=== PATIENT | male | born 2000 | race Caucasian/White ===

== ENCOUNTER 2023-12-30 01:55 | Observation (INO) | payer BC, SELFPAY ==
[2023-12-29 20:59] VITALS: BP 133/69
[2023-12-29 21:48] VITALS: BMI 25.1
[2023-12-29 22:13] LABS: % Basophils 0.4 % (0-2); % Immature Granulocytes 0.2 % (0-0.5); % Lymphocytes 12.3 % (20.5-51.1); % Neutrophils 74.1 % (42.2-75.2); Absolute Lymphocytes 1.2 10^3/uL (1.2-3.4); Absolute Monocytes 1.3 10^3/uL (0.1-0.6); Absolute Neutrophils 7.2 10^3/uL (1.4-6.5); Hemoglobin 14.4 g/dL (13.0-18.0); Mean Corp Hgb Conc. 35.1 g/dL (33.0-37.0); Mean Corpuscular Hgb 29.3 pg (27.0-31.0); Mean Corpuscular Volume 83.3 fL (80.0-94.0); Mean Platelet Volume 10.5 fL (7.4-10.4); Nucleated Red Blood Cells % 0 % (-); Platelet Count 186 10^3/uL (130-400); Red Blood Cell Count 4.92 10^6/uL (4.70-6.10); Red Cell Dist. Width 12.8 % (11.5-14.5); White Blood Cell Count 9.8 10^3/uL (4.8-10.8)
[2023-12-29 22:19] LABS: Erythrocyte Sed Rate 13 mm/hour (0-20)
[2023-12-29 22:25] LABS: Lactic Acid 0.9 mmol/L (0.7-2.0)
[2023-12-29 22:27] LABS: ALT (SGPT) 33 U/L (0-50); AST (SGOT) 53 U/L (17-59); Albumin 4.8 g/dl (3.5-5.0); Alkaline Phosphatase 82 U/L (38-126); Blood Urea Nitrogen 17 mg/dl (9-20); Calcium 10.9 mg/dl (8.4-10.2); Carbon Dioxide 24 mmol/L (22-30); Chloride 100 mmol/L (98-107); Estimated Creatinine Clearance 119 ml/min; Glucose 111 mg/dl (70-99); Potassium 4.3 mmol/L (3.5-5.1); Sodium 132 mmol/L (135-145); Total Bilirubin 1.7 mg/dl (0.2-1.3); Total Protein 7.6 g/dl (6.3-8.2); eGFR > 60.00
[2023-12-29 22:49] VITALS: BP 119/62
--- NOTE | 2023-12-29 23:37 | ED.GENMED ---
History of Present Illness
General
Chief Complaint: Skin Problem
Source: patient and family (Mother)
Exam Limitations: none
Time Seen by Provider: 12/29/23 22:05
Nursing documentation reviewed up to this point in time: agreed with
Travel History
Have you had any contact with someone who has COVID-19?: No
Do you have any symptoms of coronavirus? Fever > 100 degrees, chills, cough, shortness of breath, sore throat, loss of taste or smell, muscle aches, or headache?: No
History of Present Illness
History of Present Illness:
23-year-old male with no significant chronic medical issues who presents to the emergency room for evaluation of left elbow pain and redness, swelling. Patient reports that he had a minor fall on concrete a week ago and sustained a minor abrasion
to the left elbow. He says it had been healing well and he had no issues with it throughout the week. He says that 2 days ago at the gym he was in the hot tub and submerged the elbow and then took an ice bath and again submerged the elbow.
Yesterday he started to notice some redness and pain in the elbow and today had increasing swelling and pain and so he came to the emergency room reassessed. He says he has had some chills today. He denies any other complaints.
Past History
Past History
ED Past Medical History: None
ED Past Surgical History: None
Social History
Tobacco: Non-smoker
Alcohol: Occasional
Drug: None
Personal: Single
Living: with family
Employment: Student (Just graduated)
Family History
Family History: Other ( from tachycardia)
Review of Systems
Review of Systems
All Other Systems: ROS reviewed and negative except as documented in HPI and ROS
Constitutional: Reports fever and chills
EENT: Denies sore throat or runny nose
Respiratory: Denies cough or trouble breathing
Cardiac: Denies chest pain
ABD/GI: Denies abdominal pain, nausea or vomiting
: Denies flank pain
Musculoskeletal: Reports joint pain (Left elbow pain); Denies neck pain or back pain
Skin: Reports other (Redness and swelling left elbow)
Neurological: Denies headache
Phy Exam
Physical Exam
Physical Exam:
General: Awake, alert, oriented x3; no acute distress
Head: Normocephalic, atraumatic
Eyes: Conjunctiva normal, sclera anicteric
Throat: Airway intact, handling secretions
Neck: Trachea midline, supple without meningismus
Lungs: Clear to auscultation bilaterally, no wheezing, rales, rhonchi
Heart: Regular rate and rhythm, no murmurs, gallops, or rubs
Abd: Soft, non distended, nontender
Neuro: Cranial nerves grossly intact, speech fluid
Skin: Patient has erythema over the left olecranon surrounding a small scabbed over abrasion and localized swelling in this area�erythema is not circumferential and is quite localized over the olecranon
Extremities: Patient has erythema and localized swelling and redness over the olecranon as above; he has full active range of motion in the left elbow with no discomfort whatsoever and he has no joint effusion
Scores
Heart Failure Risk
Heart Failure Risk Score: Not Applicable
Heart Score for Chest Pain Patients
STEMI patient?: Not applicable
Withdrawal Assessment of Alcohol
Withdrawal Assessment Completed?: Not applicable
Course
Orders/Labs/Results
Orders:
Orders
12/29/23 21:05
CR Elbow - Left Min 3 Views Urgent
Comment:
Reason For Exam: swelling, redness, fever
12/29/23 22:01
CRP [C-Reactive Protein] Urgent
Complete Blood Count/With Diff Urgent
Comprehensive Metabolic Panel Urgent
Lactic Acid Q4H
Comment: ON ICE, CANCEL 2ND ORDER IF FIRST LACTIC ACID LEVEL <2
Sed Rate [Erythrocyte Sed Rate] Urgent
Blood Culture Q30M
MARITZA Source: Blood/Venous
Specimen Description:
Comment: FROM 2 SEPARATE SITES
12/29/23 22:45
Blood Culture Q30M
MARITZA Source: Blood/Venous
Specimen Description:
Comment: FROM 2 SEPARATE SITES
12/29/23 23:00
Flush (0.9% Sodium Chloride) [Flush (Nss)] See Dose Instructions IV PER PROTOCOL
12/29/23 23:03
Non Vasc Upper Ext Left US [US Non Vasc UPPER Ext LT] Urgent
Comment:
Reason For Exam: left elbow swelling
12/29/23 23:36
CeFAZolin 2 GRAM [Ancef] 2 grams in 10 ml IV NOW
Ketorolac [Toradol] 15 mg IV NOW STA
12/29/23 23:56
CeFAZolin 2 GRAM [Ancef] 2 grams in 10 ml IV NOW
12/30/23 00:28
LevoFLOXacin 750 MG/150 ML [Levaquin] 750 mg in 150 ml IV NOW
Abnormal Lab Results
12/29/23
22:01
MPV 10.5 H fL
(7.4-10.4)
Absolute Neuts (auto) 7.2 H 10^3/uL
(1.4-6.5)
Absolute Monos (auto) 1.3 H 10^3/uL
(0.1-0.6)
Lymphocytes % 12.3 L %
(20.5-51.1)
Monocytes % 13.0 H %
(1.7-9.3)
Sodium 132 L mmol/L
(135-145)
Glucose 111 H mg/dl
(70-99)
Calcium 10.9 H mg/dl
(8.4-10.2)
Total Bilirubin 1.7 H mg/dl
(0.2-1.3)
C-Reactive Protein 154.00 H mg/L
(0.0-10.00)
12/29/23 22:01
12/29/23 22:01
Vital Signs
Initial and Last Documented VS:
Initial Vital Signs
Temp Pulse Resp BP Pulse Ox
38.2 C H 91 16 133/69 99
12/29/23 20:59 12/29/23 20:59 12/29/23 20:59 12/29/23 20:59 12/29/23 20:59
Last Documented Vital Signs
Temp Pulse Resp BP Pulse Ox
37.4 C 73 18 119/62 97
12/29/23 22:49 12/29/23 22:49 12/29/23 22:49 12/29/23 22:49 12/29/23 22:49
MDM/Problems Addressed
Differential Diagnosis Includes:
Elbow fracture, septic bursitis, cellulitis, abscess, septic arthritis
MDM/Problems Addressed:
23-year-old male presents for evaluation of redness and swelling of the left elbow as described above. He arrives febrile but otherwise normal vitals. Exam as above. Suspect that this is likely either a localized cellulitis or perhaps a septic
bursitis�clinical suspicion for septic arthritis is extremely low as he has full range of motion in the left elbow with no discomfort and his localized swelling and redness is over the skin of the olecranon and does not extend around the joint
itself. He was sent for an x-ray in triage reviewed by me shows no fracture or other acute pathology. He had labs sent in triage which are pending including a CBC and a CMP, ESR and CRP as well as lactate and blood cultures given his fever. Will
send for an ultrasound of the area to evaluate for any signs of abscess. Will hold off on arthrocentesis at this point with no signs of joint effusion, no pain with range of motion of the elbow and very low clinical suspicion that this is a septic
arthritis.
Ultrasound of the area shows edema of the skin but no discernible fluid collection. Will plan to treat with antibiotics�will cover with Ancef and levofloxacin given water exposure prior to signs of infection. Given that he is having systemic
symptoms I think he warrants admission for intravenous antibiotics to start. Discussed with hospitalist for admission.
*Radiology
Radiology exam reviewed: preliminary read by ED provider
*Pulse Oximetry
Patient hypoxic: no
*Critical Care Note
Total Time (30-74mins, 75-104mins- exclusive of procedures): Not Applicable
Data Reviewed
Source: patient and family (Mother)
Further Testing Considered But Not Given:
Considered arthrocentesis as above
Patient Management
Discussion with other providers: Hospitalist (Discussed with hospitalist)
Escalation/DeEscalation of care consider admission/obs:
Admission indicated
ED Attending Note
-
Portions of this chart may have been created with voice recognition software.� Occasional wrong word or��sound alike� substitutions may have occurred due to the inherent limitations of voice recognition software.
Discharge Plan
Departure
Patient Disposition: Admit
Date of Disposition: 12/30/23
Time of Disposition: 00:34
Admit to doctor: Philomena
Presentation/result/management discussed w/ accepting MD/DO: Hospitalist
Discharge Problem:
Acute cellulitis
Prescriptions:
No Action
epinephrine [EpiPen] 0.3 MG/0.3/SYRINGE auto-injector
0.3 mg IM PRN PRN (Reason: allergic reaction)
Referrals:
NONE,* [Family Provider] -
Interventions
Interventions:
*Risk Screen - Suicide Last Done: 12/29/23 20:59
*General Assessment Last Done: 12/29/23 20:59
*Neglect/Abuse Screening Last Done: 12/29/23 20:59
ED- Fall Risk Assessment Last Done: 12/29/23 22:07
*ED COVID-19 Vaccine History Last Done: 12/29/23 21:48
ED-Skin Assessment Last Done: 12/29/23 23:45
Discharge Date and Time
Print Language: YI
[2023-12-30] MEDS: TORADOL 15 MG IV (00:17)
[2023-12-30] MEDS: ANCEF 10 IV ×2 (00:17→16:52)
[2023-12-30] MEDS: FLUSH (NSS) 1 FLUSH IV (00:18)
[2023-12-30] MEDS: LEVAQUIN 150 IV (00:46)
--- NOTE | 2023-12-30 01:52 | HPS.HSE ---
Family Physician
-
Family Physician: * NONE
Chief Complaint
-
Concern for Left Elbow Infection - pain/swelling/erythema
History of Present Illness
23yo M with No PMH on no medications presents to ER with complaint of left elbow erythema/swelling/pain starting Saturday Morning. He states about 8-9 days ago he sustained a minor fall landing on concrete with subsequent abrasion to left elbow. He
was fine up until her ran a marathon yesterday. To decompress he used a cold plunge bath followed by hot tub exposure last night. This morning he awoke with swelling/pain/erythema. Did not have a fever until present in ER with associated chills and
diaphoresis. Denies recurrence in past or hx septic joint. Denies dizziness/LH, CP, palps, wheezing, cough, sob, abd pain, n/v/d/c, dysuria, calf or leg pain.
ER course: Pt presents with Tmax 100.7, HR 91 other V.S.S. Na 132. BUN/Cr 17/1.1, WBC 9.8K, LA 0.9, Tbili 1.7, CRP 152, ESR 13. US with subcu edema, no collection. XR no obvious fx/dislocation/gas (official read pending). S/P Ancef and Levaquin in
ER.
Medical History
Past Medical History
Past Medical History: Reports None
Past Surgical History: Reports Other (Left Hand Fracture s/p Repair, R wrist Fx s/p repair )
Social History
Tobacco: Non-smoker
Alcohol: Occasional (social)
Drug: None
Family History
Family History: Other
Allergies / Home Medications
Allergies reflects when Allergies were last updated in [employer].
Home Medications with original date entered in [employer]
Allergy/Medication List:
Allergies
Allergy/AdvReac Type Severity Reaction Status Date / Time
pistachio nut Allergy Unknown Verified 02/12/22 23:43
CASHEW Allergy Rash Uncoded 02/12/22 23:43
TREE NUTS, AVOCADOS Allergy Unknown Uncoded 02/12/22 23:43
Home Medications
epinephrine 0.3 mg/0.3 mL injection, auto-injector (EpiPen) 0.3 mg IM PRN PRN allergic reaction 02/29/16
Review of Systems
-
A 12 point ROS was completed and negative except as noted: Yes
Physical Exam
Vital Signs
Vital Signs
Temp Pulse Resp BP Pulse Ox
99.3 F 73 18 119/62 97
12/29/23 22:49 12/29/23 22:49 12/29/23 22:49 12/29/23 22:49 12/29/23 22:49
Physical Exam
General: Well Developed, Well Nourished and No Apparent Distress
HEENT: NormoCephalic, Moist mucous membranes and Atraumatic
Respiratory: Clear
Cardiac: S1/S2 and Regular Rhythm; No Murmur or Rub
GI: Soft, Non Tender, Non Distended and Normal Bowel Sounds; No Organomegaly
Rectal: Deferred by Provider
Musculoskeletal: No Clubbing, No Cyanosis and No Edema
Skin: Warm, Dry, Rash and Other (Left elbow with small 1.5x1.5 cm scab. No drainage. Surrounding erythema with minimal TTP. )
Neuro: Awake, Alert, Oriented, AO x 3 and Nonfocal/grossly intact
Hematologic/Lymphatic: No Lymphadenopathy
Psych: Calm
Laboratory Results
-
12/29/23 22:01
12/29/23 22:01
Laboratory Results
Lactic Acid 0.9 mmol/L (0.7-2.0) 12/29/23 22:01
Total Bilirubin 1.7 mg/dl (0.2-1.3) H 12/29/23 22:
AST 53 U/L (17-59) 12/29/23 22:
ALT 33 U/L (0-50) 12/29/23 22:01
Alkaline Phosphatase 82 U/L (38-126) 12/29/23 22:01
Data Reviewed
-
Diagnostic Radiology: Image Personally Visualized and interpreted
Ultrasound: Image Personally Visualized and interpreted
Lab Data: Labs Reviewed by me
Old Records: Reviewed
Impression/Plan
-
Sepsis 2/2 Left Elbow Cellulitis
- Borderline sepsis on admission. +2/4 SIRS (HR 91, T 100.7). No leukocytosis. LA 0.9. CRP 154, ESR 13
- XR without obvious fx/dislocation/gas, follow official read
- US +subcu edema, (-) collection
- Given recent marathon use with wound developing after hot tub exposure will check CPK and Continue Ancef/Levaquin started in ER.
- Low threshold to change Ancef to Vancomycin for MRSA coverage if any worsening signs of sepsis.
- Does not appear to be any drainable correction or concern for septic joint at this time. Defer orthopedics evaluation.
- Consult ID for recommendations.
Hyponatremia
- Na 132. Suspect dehydration in setting of sepsis and recent marathon
- Continue NS and trend for improvement.
Hyperbilirubinemia - Tbili 1.7. Suspect cholestasis in setting of dehydration vs gilberts. LFTS otherwise unremarkable. RUQ exam benign. Continue IVF and trend.
Diet: regular
DVT Ppx: Lovenox
Code Status: Full
[2023-12-30 02:28] VITALS: BMI 24.3
[2023-12-30 02:33] VITALS: BP 125/68; BMI 24.3
[2023-12-30] MEDS: NSS 1000 IV ×2 (02:52→10:28)
[2023-12-30 03:47] LABS: Creatine Phosphokinase 517 U/L (55-170)
[2023-12-30] MEDS: ANCEF 5 IV (07:56)
[2023-12-30 07:59] LABS: % Basophils 0.2 % (0-2); % Eosinophils 0.2 % (0-6); % Immature Granulocytes 0.3 % (0-0.5); % Lymphocytes 12.8 % (20.5-51.1); % Neutrophils 72.5 % (42.2-75.2); Absolute Lymphocytes 1.1 10^3/uL (1.2-3.4); Absolute Monocytes 1.2 10^3/uL (0.1-0.6); Absolute Neutrophils 6.4 10^3/uL (1.4-6.5); Hematocrit 41.1 % (39.0-52.0); Hemoglobin 14.1 g/dL (13.0-18.0); Mean Corp Hgb Conc. 34.3 g/dL (33.0-37.0); Mean Corpuscular Hgb 29.7 pg (27.0-31.0); Mean Corpuscular Volume 86.5 fL (80.0-94.0); Mean Platelet Volume 10.7 fL (7.4-10.4); Nucleated Red Blood Cells % 0 % (-); Platelet Count 161 10^3/uL (130-400); Red Blood Cell Count 4.75 10^6/uL (4.70-6.10); Red Cell Dist. Width 12.9 % (11.5-14.5); White Blood Cell Count 8.8 10^3/uL (4.8-10.8)
[2023-12-30 08:11] VITALS: BP 108/63
--- NOTE | 2023-12-30 08:21 | W.PN.HOSP.TC ---
Today's Communication/Plan
-
likely dc in am
Assessment / Plan
Assessment / Plan
Physical Exam
General: Well Developed, Well Nourished and No Apparent Distress
HEENT: NormoCephalic, Moist mucous membranes and Atraumatic
Respiratory: Clear
Cardiac: S1/S2 and Regular Rhythm; No Murmur or Rub
GI: Soft, Non Tender, Non Distended and Normal Bowel Sounds; No Organomegaly
Rectal: no rectal bleeding
Musculoskeletal: No Clubbing, No Cyanosis and No Edema
Skin: Warm, Dry, Rash and Other (Left elbow with less tenderness and swelling posteriorly.
Neuro: Awake, Alert, Oriented, AO x 3 and Nonfocal/grossly intact
Hematologic/Lymphatic: No Lymphadenopathy
Psych: Calm
# Left Elbow Cellulitis
Much less discomfort
No Fevers
No leukocytosis
Able to flex elbow
c/w IV Abx
Give NSAIDs
reviewed US and x ray, no collection
significant clinical improvement
# Mild traumatic rhabdomyolysis due to fall
mild
s/p IVF
No hematuria
Normal renal function
Hyponatremia
- Na 132. Suspect dehydration in setting of sepsis and recent marathon
- Continue NS and trend for improvement.
Hyperbilirubinemia - resolved, due to stress. LFTS otherwise unremarkable. RUQ exam benign.
Diet: regular
DVT Ppx: Lovenox
Code Status: Full
Total time spent to see the patient, examine the patient, review data and lab results, discuss treatment plan with patient, radiologist, nursing staff around 55 minutes
Anticipated Discharge: Within 24 hours
Subjective/Interval History
-
Date of Service: December 30, 2023
Much less pain and swelling in left elbow
Objective Data
-
Labs:
Laboratory Results
12/29/23 12/30/23
22:01 07:41
WBC 9.8 Pending
Hgb 14.4 Pending
Hct 41.0 Pending
Plt Count 186 Pending
Sodium 132 L Pending
Potassium 4.3 Pending
Chloride 100 Pending
Carbon Dioxide 24 Pending
BUN 17 Pending
Creatinine 1.1 Pending
Glucose 111 H Pending
Calcium 10.9 H Pending
Total Bilirubin 1.7 H Pending
AST 53 Pending
ALT 33 Pending
Alkaline Phosphatase 82 Pending
Vital Signs:
Vital Signs
Temp Pulse Resp BP Pulse Ox
98.3 F 73 18 108/63 97
12/30/23 08:11 12/30/23 08:11 12/30/23 08:11 12/30/23 08:11 12/30/23 08:11
[2023-12-30 08:59] LABS: ALT (SGPT) 31 U/L (0-50); AST (SGOT) 41 U/L (17-59); Alkaline Phosphatase 72 U/L (38-126); Blood Urea Nitrogen 19 mg/dl (9-20); Carbon Dioxide 27 mmol/L (22-30); Chloride 101 mmol/L (98-107); Creatine Phosphokinase 308 U/L (55-170); Direct Bilirubin 0.3 mg/dl (0.0-0.4); Estimated Creatinine Clearance 119 ml/min; Glucose 100 mg/dl (70-99); Potassium 4.3 mmol/L (3.5-5.1); Sodium 133 mmol/L (135-145); Total Bilirubin 1.1 mg/dl (0.2-1.3); Total Protein 6.8 g/dl (6.3-8.2); eGFR > 60.00
--- NOTE | 2023-12-30 10:21 | CM ---
Patient seen bedside, initial assessment completed. Patient lives independently in a apartment complex on the fourth floor, no elevator, five steps to enter. Patient is independent with ADLs/IADLs. No history of VN or outpatient rehab. Patient PCP
recently left but uses [facility], pharmacy used [facility] in [place]. Patient denies food insecurities at home. CM reviewed OBS letter, signed, placed in patients chart. CM will continue to follow for discharge planning needs.
Plan; home no needs anticipated.
--- NOTE | 2023-12-30 14:16 | CON.ID ---
Consultation
-
Date/Time Consultation Requested: 12/30/2023 02:26
Date/Time Consultation Performed: 12/30/2023 1416
Requesting Provider: Dr. Quach
Performing Provider: Dr. Leonardo
Reason for Consultation: Left elbow cellulitis; olecranon bursitis
Chief Complaint / Past History
History of Present Illness
Delio Stiles is a 23-year-old man being evaluated at the request of Dr. Quach regarding left elbow cellulitis/olecranon bursitis. History is obtained from chart review, along with patient interview.
The patient has no significant past medical history and reports he was in his usual state of health until approximately 1 week ago when he slipped fell on some concrete striking his elbow and developing a small abrasion. Over the week he reported
no significant issues, but 2 days ago he reports that he went to the gym, and used a hot tub and ice bath. The next day he woke up with increasing pain and swelling, along with erythema of his left elbow area. He also reported some chills at the
time, but no rigors. The discomfort and pain persisted over the next 24 hours and he came to the emergency room last evening for further evaluation. He was started on empiric antibiotics.
At today's exam, he reports that the area is feeling somewhat improved, with decreased erythema and discomfort. He denies any axillary pain. He reports no prior history of issues with his left elbow area.
Past History
Past Medical History: None
Past Surgical History: Orthopedic (Left hand surgery secondary to fracture; right wrist surgery)
Allergy History:
pistachio nut Allergy (Verified 02/12/22 23:43)
Unknown
CASHEW Allergy (Uncoded 02/12/22 23:43)
Rash
TREE NUTS, AVOCADOS Allergy (Uncoded 02/12/22 23:43)
Unknown
Medications Reviewed: Yes
Current Antibiotics:
Cefazolin 1 g IV every 8 hours
Levofloxacin 750 mg IV every 24 hours
Social History
Tobacco: Non-Smoker
Alcohol: Occasional
Drug: None
Personal: Single
Living: With Family
Employment: Employed (Commercial real estate)
Review of Systems
Vital Signs
Temp Pulse Resp BP Pulse Ox
98.3 F 73 18 108/63 97
12/30/23 08:11 12/30/23 08:11 12/30/23 08:11 12/30/23 08:11 12/30/23 08:11
Physical Exam
Physical Exam
Constitutional: No Acute Distress, Comfortable and Non-toxic
Eyes: No Conjunctival Hemorrhage and Sclera Anicteric
Oral: No Thrush and Ulcers
Cardiovascular: Regular Rate and S1/S2; Negative S3/S4
Pulmonary: Clear; Negative Wheezes, Rales or Rhonchi
Gastrointestinal: Soft, Non Tender, Non Distended and Normal Bowel Sounds
Extremities: Other (Left elbow area with mild swelling. Minimal erythema. Minimal tenderness of the olecranon area. Mild tenderness of the more medial olecranon/elbow area. No purulence.)
Musculoskeletal: Negative Joint Swelling
Skin: Warm and Dry; Negative Rash or Jaundice
Neurological: Awake and Alert
Psychological: Calm
Lab / Diagnostic Study Results
12/30/23 07:41
12/30/23 07:41
Abs Immat Gran (auto) 0.0 10^3/uL (0-0.05) 12/30/23 07:41
Absolute Neuts (auto) 6.4 10^3/uL (1.4-6.5) 12/30/23 07:41
Absolute Lymphs (auto) 1.1 10^3/uL (1.2-3.4) L 12/30/23 07:41
Absolute Monos (auto) 1.2 10^3/uL (0.1-0.6) H 12/30/23 07:41
Absolute Basos (auto) 0.0 10^3/uL (0-0.2) 12/30/23 07:41
Immature Gran % 0.3 % (0-0.5) 12/30/23 07:41
Neutrophils % 72.5 % (42.2-75.2) 12/30/23 07:41
Lymphocytes % 12.8 % (20.5-51.1) L 12/30/23 07:41
Monocytes % 14.0 % (1.7-9.3) H 12/30/23 07:41
Eosinophils % 0.2 % (0-6) 12/30/23 07:41
Basophils % 0.2 % (0-2) 12/30/23 07:41
ESR 13 mm/hour (0-20) 12/29/23 22:01
Lactic Acid 0.9 mmol/L (0.7-2.0) 12/29/23 22:01
C-Reactive Protein 154.00 mg/L (0.0-10.00) H 12/29/23 22:01
Microbiology Results
Micro:
12/29/23 22:45 Blood Culture - Pending
Blood/Venous
12/29/23 22:01 Blood Culture - Pending
Blood/Venous
Imaging:
12/29/2023 Ultrasound (nonvascular; left upper extremity) : No evidence of abscess formation. There is a Doda soft tissues at the area of concern.
Assessment / Plan
Left elbow cellulitis
Suspected left olecranon bursitis
Elevated CRP
Recommendations:
Continue cefazolin; increase to 2 g IV every 8 hours
Continue levofloxacin; transition to oral route.
If continued improvement over the next 24 hours, transition to cefazolin 2 cephalexin 500 mg 4 times daily for an additional 10-14 days
Upper extremity elevation.
Monitor white count and temperature curve
[2023-12-30 15:53] VITALS: BP 128/64
[2023-12-30] MEDS: LOVENOX 40 MG SC (17:44)
[2023-12-30] MEDS: LEVAQUIN 750 MG PO (21:15)
[2023-12-30 23:58] VITALS: BP 131/77
[2023-12-31] MEDS: ANCEF 10 IV ×4 (00:07→23:13)
[2023-12-31 08:22] VITALS: BP 126/71
[2023-12-31 08:32] LABS: Creatine Phosphokinase 108 U/L (55-170)
--- NOTE | 2023-12-31 10:24 | W.PN.HOSP.TC ---
Today's Communication/Plan
-
likely dc in am
Assessment / Plan
Assessment / Plan
Physical Exam
General: Well Developed, Well Nourished and No Apparent Distress
HEENT: NormoCephalic, Moist mucous membranes and Atraumatic
Respiratory: Clear
Cardiac: S1/S2 and Regular Rhythm; No Murmur or Rub
GI: Soft, Non Tender, Non Distended and Normal Bowel Sounds; No Organomegaly
Rectal: no rectal bleeding
Musculoskeletal: No Clubbing, No Cyanosis and No Edema
Skin: Warm, Dry, Rash and Other (Left elbow with less tenderness and swelling posteriorly.
Neuro: Awake, Alert, Oriented, AO x 3 and Nonfocal/grossly intact
Hematologic/Lymphatic: No Lymphadenopathy
Psych: Calm
# Left Elbow Cellulitis
Much less discomfort and swelling
No Fevers
No leukocytosis
Able to flex elbow
c/w IV Abx, change IV Ancef to 2 gm Q 8H
c/w oral Levaquin, chck EKG
reviewed US and x ray, no collection
significant clinical improvement
Appreciate ID help
# Mild traumatic rhabdomyolysis due to fall
CPK normalized from 308 to 108
mild
s/p IVF
No hematuria
Normal renal function
Hyponatremia
- Na 132. Suspect dehydration in setting of sepsis and recent marathon
- recheck BMP in am
Hyperbilirubinemia - resolved, due to stress. LFTS otherwise unremarkable. RUQ exam benign.
Diet: regular
DVT Ppx: Lovenox
Code Status: Full
Total time spent to see the patient, examine the patient, review data and lab results, discuss treatment plan with patient, radiologist, nursing staff around 55 minutes
Anticipated Discharge: Within 24 hours
Subjective/Interval History
-
Date of Service: December 31, 2023
Less swelling and tenderness in left elbow
Objective Data
-
Vital Signs:
Vital Signs
Temp Pulse Resp BP Pulse Ox
98.1 F 61 18 126/71 99
12/31/23 08:22 12/31/23 08:22 12/31/23 08:22 12/31/23 08:22 12/31/23 08:22
I&O
12/30/23 12/31/23 01/01/24
06:59 06:59 06:59
Intake Total 2680 / 2680
Balance 2680 / 2680
--- NOTE | 2023-12-31 11:49 | CM ---
Patient seen bedside, reports no needs to CM. CM will continue to follow for discharge planning needs.
Plan; home no needs likely.
[2023-12-31 15:00] VITALS: BP 121/64
[2023-12-31 16:19] VITALS: BP 121/64
[2023-12-31] MEDS: LOVENOX 40 MG SC (17:24)
[2023-12-31] MEDS: LEVAQUIN 750 MG PO (20:44)
[2023-12-31 23:07] VITALS: BP 129/70
[2024-01-01 07:37] LABS: Hematocrit 40.9 % (39.0-52.0); Hemoglobin 14.1 g/dL (13.0-18.0); Mean Corp Hgb Conc. 34.5 g/dL (33.0-37.0); Mean Corpuscular Hgb 29.3 pg (27.0-31.0); Mean Corpuscular Volume 84.9 fL (80.0-94.0); Mean Platelet Volume 11.2 fL (7.4-10.4); Platelet Count 186 10^3/uL (130-400); Red Blood Cell Count 4.82 10^6/uL (4.70-6.10); Red Cell Dist. Width 12.5 % (11.5-14.5); White Blood Cell Count 4.9 10^3/uL (4.8-10.8)
[2024-01-01 07:53] LABS: ALT (SGPT) 20 U/L (0-50); AST (SGOT) 26 U/L (17-59); Alkaline Phosphatase 65 U/L (38-126); Blood Urea Nitrogen 19 mg/dl (9-20); Calcium 10.3 mg/dl (8.4-10.2); Carbon Dioxide 23 mmol/L (22-30); Chloride 105 mmol/L (98-107); Estimated Creatinine Clearance > 125 ml/min; Glucose 98 mg/dl (70-99); Potassium 4.4 mmol/L (3.5-5.1); Sodium 136 mmol/L (135-145); Total Bilirubin 0.7 mg/dl (0.2-1.3); Total Protein 6.7 g/dl (6.3-8.2); eGFR > 60.00
[2024-01-01 08:07] VITALS: BP 128/61
[2024-01-01] MEDS: ANCEF 10 IV (09:16)
[2024-01-01] MEDS: FLUSH (NSS) 1 FLUSH IV (09:17)
--- NOTE | 2024-01-01 10:42 | W.DCSUMMARY ---
Discharge Summary
Discharge Data
Date of Admission: 12/30/23
Date of Discharge: 01/01/24
-
Pending Results: No
Hospital Course
23 years old male who presented with left elbow swelling and tenderness. Patient had an injury after a fall at home and he continued to do his activity including using hot tub and the gym. Patient was diagnosed with left elbow cellulitis and
possible left olecranon bursitis. He had elevated his C-reactive protein and normal ESR. He did not have fever or leukocytosis. Imaging studies including ultrasound did not show fluid collection. Patient received intravenous antibiotic,
cefazolin. Patient was evaluated by infectious diseases campaign consultant. Swelling and tenderness decreased significantly. He was able to move the elbow with no significant pain or limitation in movement. Good peripheral pulses. Patient was
discharged home with oral antibiotics including cephalexin and Levaquin. Patient was counseled regarding potential side effects of both antibiotics including tendon injury, he verbalized understanding. Patient remained hemodynamically stable and
was discharged in a stable condition.
Physical Exam
General: Well Developed, Well Nourished and No Apparent Distress
HEENT: NormoCephalic, Moist mucous membranes and Atraumatic
Respiratory: Clear
Cardiac: S1/S2 and Regular Rhythm; No Murmur or Rub
GI: Soft, Non Tender, Non Distended and Normal Bowel Sounds; No Organomegaly
Rectal: no rectal bleeding
Musculoskeletal: No Clubbing, No Cyanosis and No Edema
Skin: Warm, Dry, Rash and Other (Left elbow with much less tenderness and swelling /no limitation to elbow movement.
Neuro: Awake, Alert, Oriented, AO x 3 and Nonfocal/grossly intact
Hematologic/Lymphatic: No Lymphadenopathy
Psych: Calm
Total discharge time spent to see the patient, examine the patient, review data and lab results, discuss discharge plan with patient, his mother, nursing staff around 65 minutes
Discharge Plan
-
Patient Disposition: Home (Routine Discharge)
Discharge Diagnosis/Procedures: Left elbow cellulitis/possible left olecranon bursitis
You are given intravenous antibiotic called cefazolin and antibiotic called Levaquin. You are seen by infectious diseases campaign consultant. Imaging studies did not show fluid collection. You did not have elevation in white count. You did not have
fever.
Potential side effects of cephalexin include gastrointestinal upset, diarrhea. Potential side effects of Levaquin including tendon injury. Stop Levaquin if you develop joint pain.
Continue to use the elbow without strenuous activity for 2 to 3 weeks. Okay to resume jogging/running in the next few days. Monitor for fever and/or worsening elbow swelling or tenderness.
You will need to follow-up with your primary care doctor within a week.
You can use Tylenol for pain or discomfort as 500-1000 mg every 6 hours as needed.
Diet: Regular
Driving Restrictions: As prior to admission
Bathing Restrictions: None
Referrals:
NONE,* [Family Provider] -
Prescriptions:
New
levofloxacin 750 mg Tablet
750 mg PO Q24H Qty: 3 0RF
cephalexin 500 mg capsule
500 mg PO QID Qty: 32 0RF
Continued
epinephrine [EpiPen] 0.3 MG/0.3/SYRINGE auto-injector
0.3 mg IM PRN PRN (Reason: allergic reaction)
Discharge Orders:
Discharge Patient (As Directed); Ordered 01/01/24
Ordered By: Leisa Sinclair
Discharge Date and Time
Print Language: PASHTO
--- NOTE | 2024-01-01 11:05 | W.PN.ID1 ---
Date of Service
Date of Service: January 01, 2024
Today's Communication
Continue abx.
Assessment / Plan
Left elbow cellulitis
Suspected left olecranon bursitis
Elevated CRP
Recommendations:
Area overall improved.
Transition to oral cephalexin 500 mg 4 times daily for an additional 10 to 14 days
Can likely discontinue further levofloxacin
Subjective / Review of Systems
Patient seen and examined. Reports improvement in left elbow swelling, along with erythema
Review of Systems: No Fever and No Chills
Vital Signs / Physical Exam
Vital Signs
Vital Signs
Temp Pulse Resp BP Pulse Ox
98.4 F 53 16 128/61 98
01/01/24 08:07 01/01/24 08:07 01/01/24 08:07 01/01/24 08:07 01/01/24 09:16
Physical Exam
Constitutional: No Acute Distress, Comfortable and Non-toxic
Eyes: Sclera Anicteric
Pulmonary: Non Labored
Extremities: Edema (Left elbow area) and Erythema (Left elbow area; minimal)
Neurological: Awake and Alert
Psychological: Calm
Objective Data
Lab Data
Lab Results
01/01/24 06:31
01/01/24 06:31
ESR 13 mm/hour (0-20) 12/29/23 22:01
Estimated Creat Clear > 125 ml/min 01/01/24 06:31
Lactic Acid 0.9 mmol/L (0.7-2.0) 12/29/23 22:01
Total Bilirubin 0.7 mg/dl (0.2-1.3) 01/01/24 06:31
AST 26 U/L (17-59) 01/01/24 06:31
ALT 20 U/L (0-50) 01/01/24 06:31
Alkaline Phosphatase 65 U/L (38-126) 01/01/24 06:31
C-Reactive Protein 154.00 mg/L (0.0-10.00) H 12/29/23 22:01
Most recent labs reviewed.
Micro Results:
12/29/23 22:45 Blood Culture - Preliminary
Blood/Venous No Growth in 48 hours- Final report to follow
12/29/23 22:01 Blood Culture - Preliminary
Blood/Venous No Growth in 48 hours- Final report to follow
Imaging:
12/29/2023 Ultrasound (nonvascular; left upper extremity) : No evidence of abscess formation. There is a Doda soft tissues at the area of concern.
Care Review
Plan reviewed with: Physician (Hospitalist)
--- NOTE | 2024-01-01 11:45 | CM ---
Patient seen bedside, reports no needs to CM at this time. Patient for discharge today. CM will continue to follow for discharge planning needs.
Plan; home no needs.
== END 2024-01-01 13:05 | disposition home or self-care (01) ==
LOC: 4 EAST ACU 01:55
PROVIDERS: Emergency Medicine; ADMITTING PHYSICIAN Internal Medicine; ATTENDING PHYSICIAN Internal Medicine; EMERGENCY PHYSICIAN Emergency Medicine; OTHER PHYSICIAN Internal Medicine Infectious Disease
DX: L03.114 Cellulitis of left upper limb (principal); A41.9 Sepsis, unspecified organism; M25.529 Pain in unspecified elbow; M25.422 Effusion, left elbow; R50.9 Fever, unspecified; S50.312A Abrasion of left elbow, initial encounter; E87.1 Hypo-osmolality and hyponatremia; E80.6 Other disorders of bilirubin metabolism; R79.82 Elevated C-reactive protein (CRP); T79.6XXA Traumatic ischemia of muscle, initial encounter; W01.198A Fall on same level from slipping, tripping and stumbling with subsequent striking against other object, initial encounter; Y93.9 Activity, unspecified; Y92.480 Sidewalk as the place of occurrence of the external cause; Y99.9 Unspecified external cause status; Z91.018 Allergy to other foods
CPT/HCPCS: 73080; 76882; 80053; 82248; 82550; 83605; 85025; 85027; 85652; 86140; 87040; 93005; 96374; 96375; 99285; G0378